=== PATIENT | female | born 2000 | race American Indian/Alaskan Native ===

== ENCOUNTER 2021-08-22 21:58 | Emergency (ER) | payer MEDICAID ==
[2021-08-23 01:28] VITALS: BP 133/79
[2021-08-23] MEDS ORDERED: IBUPROFEN 600 MG TAB PO ONE (01:46)
[2021-08-23] MEDS ORDERED: predniSONE 20 MG TAB PO ONE (01:46)
[2021-08-23] MEDS ORDERED: diazePAM 5 MG TAB PO ONE (01:47)
--- NOTE | 2021-08-23 01:51 | Emergency Department Report ---
ED Extremity Problem HPI - General Chief complaint: Extremity Injury, Upper Stated complaint: LT WRIST PAIN/POSS FRACTURE Source: patient Mode of arrival: Ambulatory Limitations: No Limitations - History of Present Illness Initial comments: Patient is a 21-year-old -[place] female with no past medical history presents to the ED with complaint of acute onset persistent nontraumatic left wrist pain for the last 2 days. Patient states that the pain is especially worse with any active range of motion. Patient states that the pain is constant and persistent and that she is unable to bear weight on the left hand because of worsening left wrist pain. Patient denies fall, traumatic injury, heavy lifting, of nausea and vomiting, fever, chills, numbness and tingling or weakness of left hand or left wrist. MD Complaint: extremity pain (Left wrist pain), joint paint (Left wrist pain) -: Sudden, days(s) (2) Location: left (Left wrist pain), upper extremity (Left wrist pain) History of Same: No -: No myalgia, Yes arthralgia (Left wrist pain), No fever, No associated dyspnea, No associated chest pain Severity scale (0 -10): 9 Quality: aching, sharp Consistency: constant Improves with: nothing Worsens with: weight bearing, exertion, palpation Associated Symptoms: denies other symptoms, arthralgias (Left wrist pain). denies: chest pain, shortness of breath, fever, myalgias, rash, other - Related Data Previous Rx's Medication Instructions Recorded Last Taken Type Naproxen 500 mg PO Q12H PRN #30 tab 08/23/21 Unknown Rx predniSONE [Deltasone] 60 mg PO QDAY #15 tab 08/23/21 Unknown Rx Allergies Allergy/AdvReac Type Severity Reaction Status Date / Time No Known Allergies Allergy Unverified 08/23/21 01:28 ED Review of Systems ROS: Stated complaint: LT WRIST PAIN/POSS FRACTURE Other details as noted in HPI Constitutional: denies: chills, fever Eyes: denies: eye pain, eye discharge, vision change ENT: denies: ear pain, throat pain Respiratory: denies: cough, shortness of breath, wheezing Cardiovascular: denies: chest pain, palpitations Endocrine: no symptoms reported Gastrointestinal: denies: abdominal pain, nausea, vomiting, diarrhea Genitourinary: denies: urgency, dysuria, discharge Musculoskeletal: arthralgia (Left wrist pain). denies: back pain, joint swelling Skin: denies: rash, lesions Neurological: denies: headache, weakness, paresthesias Psychiatric: denies: anxiety, depression Hematological/Lymphatic: denies: easy bleeding, easy bruising ED Past Medical Hx - Past Medical History Previous Medical History?: No - Surgical History Past Surgical History?: No - Medications Home Medications: Home Medications Medication Instructions Recorded Confirmed Last Taken Type Naproxen 500 mg PO Q12H PRN #30 tab 08/23/21 Unknown Rx predniSONE [Deltasone] 60 mg PO QDAY #15 tab 08/23/21 Unknown Rx ED Physical Exam - General Limitations: No Limitations General appearance: alert, in no apparent distress - Head Head exam: Present: atraumatic, normocephalic, normal inspection - Eye Eye exam: Present: normal appearance, PERRL, EOMI Pupils: Present: normal accommodation - ENT ENT exam: Present: normal exam, normal orophraynx, mucous membranes moist, TM's normal bilaterally, normal external ear exam - Neck Neck exam: Present: normal inspection, full ROM. Absent: tenderness - Respiratory Respiratory exam: Present: normal lung sounds bilaterally. Absent: respiratory distress, wheezes, rales, rhonchi, chest wall tenderness, accessory muscle use, decreased breath sounds, prolonged expiratory - Cardiovascular Cardiovascular Exam: Present: regular rate, normal rhythm, normal heart sounds. Absent: systolic murmur, diastolic murmur, rubs, gallop - GI/Abdominal GI/Abdominal exam: Present: soft, normal bowel sounds. Absent: tenderness, guarding, rebound, hyperactive bowel sounds, hypoactive bowel sounds, organomegaly - Extremities Exam Extremities exam: Present: normal inspection, tenderness (Palpable left wrist joint tenderness with limited range of motion due to pain), normal capillary refill. Absent: full ROM (Limited range of motion of left wrist due to pain), pedal edema, joint swelling, calf tenderness - Back Exam Back exam: Present: normal inspection, full ROM. Absent: tenderness, CVA tenderness (R), CVA tenderness (L), muscle spasm, paraspinal tenderness - Neurological Exam Neurological exam: Present: alert, oriented X3, CN II-XII intact, normal gait, reflexes normal - Psychiatric Psychiatric exam: Present: normal affect, normal mood - Skin Skin exam: Present: warm, dry, intact, normal color. Absent: rash ED Course Vital Signs 08/23/21 01:24 Temperature 98.6 F Pulse Rate 82 Respiratory 14 Rate Blood Pressure 133/79 [Right] O2 Sat by Pulse 100 Oximetry ED Medical Decision Making - Medical Decision Making This is a 21-year-old -[place] female with no past medical history presents to the ED with complaint of acute onset persistent nontraumatic left wrist pain for the last 2 days. Patient states that the pain is especially worse with any active range of motion. Patient states that the pain is constant and persistent and that she is unable to bear weight on the left hand because of worsening left wrist pain. In the ED, patient is alert and oriented x3 and is not in any distress. Patient was treated for pain in the ED. Based on the history and physical exam findings, patient symptoms are likely musculoskeletal, likely tendinitis or muscle strain of left wrist. Patient left wrist was splinted with Velcro splint. Patient was discharged home on pain medications and advised to follow-up with her primary care physician in 7 to 10 days for reevaluation or return to the ED immediately if symptoms get worse. - Differential Diagnosis Tendinitis; muscle strain; musculoskeletal pain; Critical care attestation.: If time is entered above; I have spent that time in minutes in the direct care of this critically ill patient, excluding procedure time. ED Disposition Clinical Impression: Left wrist tendonitis, Musculoskeletal pain of left upper extremity Muscle strain of left wrist Qualifiers: Encounter type: initial encounter Qualified Code(s): S66.912A - Strain of unspecified muscle, fascia and tendon at wrist and hand level, left hand, initial encounter Disposition: HOME / SELF CARE / HOMELESS Is pt being admited?: No Does the pt Need Aspirin: No Condition: Stable Instructions: Wrist Pain, Adult, [id number], Tendinitis, [id number], Muscle Strain, [id number] Additional Instructions: Your symptoms are likely due to muscle strain versus tendinitis or musculoskeletal pain. Therefore take medications with food, drink plenty of fluids and follow-up with your primary care physician in 7 to 10 days for reevaluation or return to the ED immediately if symptoms get worse. Prescriptions: predniSONE [Deltasone] 60 mg PO QDAY #15 tab Naproxen 500 mg PO Q12H PRN #30 tab PRN Reason: Pain , Severe (7-10) Referrals: [facility] [Provider Group] - 7-10 days Forms: Work/School Release Form(ED) Time of Disposition: 01:51 Print Language: PORTUGUESE
== END 2021-08-23 05:08 | disposition home or self-care (01) ==
LOC: ED 21:58
DX: S66.912A Strain of unspecified muscle, fascia and tendon at wrist and hand level, left hand, initial encounter (principal); M77.22 Periarthritis, left wrist; M79.18 Myalgia, other site; W19.XXXA Unspecified fall, initial encounter; Y93.89 Activity, other specified; Y92.89 Other specified places as the place of occurrence of the external cause; Y99.8 Other external cause status
CPT/HCPCS: 99282; 99283

== ENCOUNTER 2021-09-20 19:20 | Emergency (ER) | payer MEDICAID ==
[2021-09-21] MEDS ORDERED: HYDROcodone/ACETAMINOPHEN 5-325 MG TAB PO STA (02:31)
[2021-09-21 03:23] LABS: Basophils % (Auto) 0.4 % (0.0-1.8); Eosinophils # (Auto) 0.1 K/mm3 (0.0-0.4); Eosinophils % (Auto) 0.9 % (0.0-4.3); Hematocrit 35.5 % (30.3-42.9); Hemoglobin 11.5 gm/dl (10.1-14.3); Lymphocytes # (Auto) 1.1 K/mm3 (1.2-5.4); Lymphocytes % (Auto) 12.5 % (13.4-35.0); Mean Corpuscular HGB Conc 32 % (30-34); Mean Corpuscular Volume 81 fl (79-97); Monocytes # (Auto) 0.7 K/mm3 (0.0-0.8); Monocytes % (Auto) 8.4 % (0.0-7.3); Platelet Count 341 K/mm3 (140-440); Red Blood Count 4.39 M/mm3 (3.65-5.03); Red Cell Distribution Width 15.3 % (13.2-15.2)
[2021-09-21 03:46] LABS: Alanine Aminotransferase 6 units/L (7-56); Albumin 4.8 g/dL (3.9-5); Blood Urea Nitrogen 8 mg/dL (7-17); Calcium 9.5 mg/dL (8.4-10.2); Hemolysis Index 0
[2021-09-21 04:22] LABS: BUN/Creatinine Ratio 13; Bilirubin,Direct < 0.2 mg/dL (0-0.2)
[2021-09-21 05:21] LABS: HCG Qualitative,Urine Negative (Negative)
[2021-09-21 05:25] LABS: Bacteria,Urine 2+ /HPF (Negative); Bilirubin,Urine NEG (Negative); Blood,Urine LG (Negative); Color,Urine Yellow (Yellow); Mucus,Urine FEW /HPF; Urobilinogen,Urine < 2.0 mg/dL (<2.0)
[2021-09-21] MEDS ORDERED: NITROFURANTOIN MONOHYD/M-CRYST 100 MG CAP PO ONE (07:18)
[2021-09-21] MEDS ORDERED: KETOROLAC 60 MG/2 ML INJ IM ONE (07:18)
--- NOTE | 2021-09-21 07:23 | Emergency Department Report ---
ED Back Pain/Injury HPI - General Chief Complaint: Back Pain/Injury Stated Complaint: BACK PAIN Time Seen by Provider: 09/21/21 02:29 Source: patient Limitations: No Limitations - History of Present Illness Initial Comments: 21-year-old female presents to the hospital complaining of back pain for last 4 days and radiates to the abdomen. Patient states pain is moderate to severe in intensity that feels like she got punched. Pain is worse with movement and palpation. No alleviating factors reported. Patient did have 1 episode of vomiting at pain onset but no nausea vomiting since. No fever or dysuria reported. Patient received Jacobson prior to my evaluation with mild improvement. No vaginal discharge - Related Data Previous Rx's Medication Instructions Recorded Last Taken Type Naproxen 500 mg PO Q12H PRN #30 tab 08/23/21 Unknown Rx predniSONE [Deltasone] 60 mg PO QDAY #15 tab 08/23/21 Unknown Rx Fluconazole [Diflucan TAB] 150 mg PO QDAY #1 tablet 09/21/21 Unknown Rx Ibuprofen [Motrin] 600 mg PO Q8H PRN #20 tablet 09/21/21 Unknown Rx Nitrofurantoin [place]/M-Cryst 100 mg PO Q12HR #14 capsule 09/21/21 Unknown Rx [Macrobid CAP] Ondansetron [Zofran Odt] 4 mg PO Q8HR PRN #14 tab.rapdis 09/21/21 Unknown Rx traMADoL [Ultram 50 MG tab] 50 mg PO Q6HR PRN #20 tablet 09/21/21 Unknown Rx Allergies Allergy/AdvReac Type Severity Reaction Status Date / Time No Known Allergies Allergy Unverified 08/23/21 01:28 ED Review of Systems ROS: Stated complaint: BACK PAIN Other details as noted in HPI Comment: All other systems reviewed and negative ED Past Medical Hx - Medications Home Medications: Home Medications Medication Instructions Recorded Confirmed Last Taken Type Naproxen 500 mg PO Q12H PRN #30 tab 08/23/21 Unknown Rx predniSONE [Deltasone] 60 mg PO QDAY #15 tab 08/23/21 Unknown Rx Fluconazole [Diflucan TAB] 150 mg PO QDAY #1 tablet 09/21/21 Unknown Rx Ibuprofen [Motrin] 600 mg PO Q8H PRN #20 tablet 09/21/21 Unknown Rx Nitrofurantoin [place]/M-Cryst 100 mg PO Q12HR #14 capsule 09/21/21 Unknown Rx [Macrobid CAP] Ondansetron [Zofran Odt] 4 mg PO Q8HR PRN #14 tab.rapdis 09/21/21 Unknown Rx traMADoL [Ultram 50 MG tab] 50 mg PO Q6HR PRN #20 tablet 09/21/21 Unknown Rx ED Physical Exam - General Limitations: No Limitations - Other Other exam information: General: No acute distress Head: Atraumatic Eyes: normal appearance ENT: Moist mucous membranes Neck: Normal appearance, no midline tenderness Chest: Clear to auscultation bilaterally CV: Regular rate and rhythm Abdomen: Soft, normal bowel sounds, generalized abdominal tenderness, nondistended, no rebound or guarding Back: Normal inspection. Bilateral flank tenderness to palpation Extremity: Normal inspection, full range of motion Neuro: Alert O x 3, no facial asymmetry, speech clear, no gross motor sensory deficit Psych: Appropriate behavior Skin: No rash ED Course Vital Signs 09/20/21 09/21/21 20:09 03:52 Temperature 98.3 F Pulse Rate 94 H Respiratory 18 16 Rate Blood Pressure 144/82 O2 Sat by Pulse 100 Oximetry ED Medical Decision Making - Lab Data Result diagrams: 09/21/21 02:45 09/21/21 02:45 Lab Results 09/21/21 09/21/21 09/21/21 Range/Units 02:45 02:45 05:14 WBC 8.6 (4.5-11.0) K/mm3 RBC 4.39 (3.65-5.03) M/mm3 Hgb 11.5 (10.1-14.3) gm/dl Hct 35.5 (30.3-42.9) % MCV 81 (79-97) fl MCH 26 L (28-32) pg MCHC 32 (30-34) % RDW 15.3 H (13.2-15.2) % Plt Count 341 (140-440) K/mm3 Lymph % (Auto) 12.5 L (13.4-35.0) % Crockett % (Auto) 8.4 H (0.0-7.3) % Eos % (Auto) 0.9 (0.0-4.3) % Baso % (Auto) 0.4 (0.0-1.8) % Lymph # (Auto) 1.1 L (1.2-5.4) K/mm3 [place]ett # (Auto) 0.7 (0.0-0.8) K/mm3 Eos # (Auto) 0.1 (0.0-0.4) K/mm3 Baso # (Auto) 0.0 (0.0-0.1) K/mm3 Seg Neutrophils % 77.8 H (40.0-70.0) % Seg Neutrophils # 6.7 (1.8-7.7) K/mm3 Sodium 139 (137-145) mmol/L Potassium 4.0 (3.6-5.0) mmol/L Chloride 101.9 (98-107) mmol/L Carbon Dioxide 25 (22-30) mmol/L Anion Gap 16 mmol/L BUN 8 (7-17) mg/dL Creatinine 0.6 (0.6-1.2) mg/dL Estimated GFR > 60 ml/min BUN/Creatinine Ratio 13 % Glucose 108 H (65-100) mg/dL Calcium 9.5 (8.4-10.2) mg/dL Total Bilirubin 0.20 (0.1-1.2) mg/dL Direct Bilirubin < 0.2 (0-0.2) mg/dL Indirect Bilirubin 0.0 mg/dL AST 13 (5-40) units/L ALT 6 L (7-56) units/L Alkaline Phosphatase 61 (35-129) units/L Total Protein 7.7 (6.3-8.2) g/dL Albumin 4.8 (3.9-5) g/dL Albumin/Globulin Ratio 1.7 % Urine Color Yellow (Yellow) Urine Turbidity Slightly-cloudy (Clear) Urine pH 7.0 (5.0-7.0) Ur Specific Sharon 1.003 (1.003-1.030) Urine Protein 100 mg/dl (Negative) mg/dL Urine Glucose (UA) Neg (Negative) mg/dL Urine Ketones Neg (Negative) mg/dL Urine Blood Lg (Negative) Urine Nitrite Neg (Negative) Ur Reducing Substances Not Reportable Urine Bilirubin Neg (Negative) Urine Ictotest Not Reportable Urine Urobilinogen < 2.0 (<2.0) mg/dL Ur Leukocyte Esterase Lg (Negative) Urine WBC (Auto) 16.0 H (0.0-6.0) /HPF Urine RBC (Auto) 7.0 (0.0-6.0) /HPF U Epithel Cells (Auto) 15.0 H (0-13.0) /HPF Urine Bacteria (Auto) 2+ (Negative) /HPF Urine Mucus Few /HPF Urine Yeast (Budding) 1+ /HPF Urine HCG, Qual Negative (Negative) - Medical Decision Making 21-year-old female with back pain and abdominal pain with UA findings suggestive of UTI versus contamination. Patient be treated symptomatic for pain, nausea, and provided medication for UTI and yeast. Outpatient follow-up recommended. Patient treated with Jacobson, Toradol, and Macrobid in the ED Critical Care Time: No Critical care attestation.: If time is entered above; I have spent that time in minutes in the direct care of this critically ill patient, excluding procedure time. ED Disposition Clinical Impression: UTI (urinary tract infection), Abdominal pain, Back pain, Yeast vaginitis Disposition: HOME / SELF CARE / HOMELESS Is pt being admited?: No Condition: Stable Instructions: Urinary Tract Infection, Adult, [id number], Abdominal Pain, Adult, Vaginal Yeast Infection, Adult Additional Instructions: Take the medication as prescribed. Follow-up with your doctor or doctor/clinic provided. Return if symptoms worsen as indicated by your discharge instructions. Prescriptions: Fluconazole [Diflucan TAB] 150 mg PO QDAY #1 tablet Nitrofurantoin [place]/M-Cryst [Macrobid CAP] 100 mg PO Q12HR #14 capsule Ibuprofen [Motrin] 600 mg PO Q8H PRN #20 tablet PRN Reason: Pain traMADoL [Ultram 50 MG tab] 50 mg PO Q6HR PRN #20 tablet PRN Reason: Pain Ondansetron [Zofran Odt] 4 mg PO Q8HR PRN #14 tab.rapdis PRN Reason: Nausea And Vomiting Referrals: PRIMARY CARE, [Primary Care Provider] - 3-[address] [facility] [Provider Group] - 3-5 Days Time of Disposition: 07:25
[2021-09-21 07:40] VITALS: BP 128/64
== END 2021-09-21 07:38 | disposition home or self-care (01) ==
LOC: ED 19:20
DX: N39.0 Urinary tract infection, site not specified (principal); M54.50 Low back pain, unspecified; R10.9 Unspecified abdominal pain; B37.3 Candidiasis of vulva and vagina
CPT/HCPCS: 36415; 80048; 80076; 81001; 81025; 85025; 87086; 96372; 99283; J1885

== ENCOUNTER 2021-10-19 02:35 | Emergency (ER) | payer MEDICAID ==
[2021-10-19 04:08] LABS: HCG Qualitative,Urine Negative (Negative)
[2021-10-19 04:13] LABS: Bacteria,Urine 1+ /HPF (Negative); Bilirubin,Urine NEG (Negative); Blood,Urine SM (Negative); Color,Urine Yellow (Yellow); Mucus,Urine 3+ /HPF; Urobilinogen,Urine < 2.0 mg/dL (<2.0)
[2021-10-19 05:38] LABS: Hematocrit 34.1 % (30.3-42.9); Hemoglobin 10.7 gm/dl (10.1-14.3); Mean Corpuscular HGB Conc 32 % (30-34); Mean Corpuscular Volume 82 fl (79-97); Platelet Count 234 K/mm3 (140-440); Red Blood Count 4.18 M/mm3 (3.65-5.03); Red Cell Distribution Width 15.6 % (13.2-15.2)
[2021-10-19 05:51] LABS: Blood Urea Nitrogen 8 mg/dL (7-17); Calcium 9.3 mg/dL (8.4-10.2); Hemolysis Index 7
[2021-10-19 06:07] LABS: BUN/Creatinine Ratio 16
--- NOTE | 2021-10-19 08:22 | Emergency Department Report ---
ED Abdominal Pain HPI - General Chief Complaint: Abdominal Pain Stated Complaint: RT FLANK PAIN PUI?: No Time Seen by Provider: 10/19/21 06:46 Source: EMS Mode of arrival: Stretcher Limitations: No Limitations - History of Present Illness Initial Comments: Patient is a 21-year-old female presenting to ED with complaint of right flank pain that is been worsening over the past few weeks. She denies any fever or chills. She reports associated nausea without vomiting. There are no modifying factors. - Related Data Previous Rx's Medication Instructions Recorded Last Taken Type Naproxen 500 mg PO Q12H PRN #30 tab 08/23/21 Unknown Rx predniSONE [Deltasone] 60 mg PO QDAY #15 tab 08/23/21 Unknown Rx Fluconazole [Diflucan TAB] 150 mg PO QDAY #1 tablet 09/21/21 Unknown Rx Ibuprofen [Motrin] 600 mg PO Q8H PRN #20 tablet 09/21/21 Unknown Rx Nitrofurantoin [place]/M-Cryst 100 mg PO Q12HR #14 capsule 09/21/21 Unknown Rx [Macrobid CAP] Ondansetron [Zofran Odt] 4 mg PO Q8HR PRN #14 tab.rapdis 09/21/21 Unknown Rx traMADoL [Ultram 50 MG tab] 50 mg PO Q6HR PRN #20 tablet 09/21/21 Unknown Rx Ciprofloxacin/Ciprofloxa HCl 500 mg PO BID #28 10/19/21 Unknown Rx [Ciprofloxacin ER 500 mg Tablet] traMADoL [Ultram 50 MG tab] 50 mg PO Q6HR PRN #14 tablet 10/19/21 Unknown Rx Allergies Allergy/AdvReac Type Severity Reaction Status Date / Time aspirin Allergy Itching Verified 10/19/21 03:32 ED Review of Systems ROS: Stated complaint: RT FLANK PAIN Other details as noted in HPI Comment: All other systems reviewed and negative Constitutional: denies: chills, fever Respiratory: denies: cough, shortness of breath, wheezing Cardiovascular: denies: chest pain, palpitations Endocrine: no symptoms reported Gastrointestinal: nausea. denies: vomiting Genitourinary: other (Flank pain) Skin: denies: rash, lesions Neurological: denies: headache, weakness, paresthesias Psychiatric: denies: anxiety, depression ED Past Medical Hx - Past Medical History Previous Medical History?: No - Surgical History Past Surgical History?: No - Social History Smoking Status: Never Smoker Substance Use Type: None - Medications Home Medications: Home Medications Medication Instructions Recorded Confirmed Last Taken Type Naproxen 500 mg PO Q12H PRN #30 tab 08/23/21 Unknown Rx predniSONE [Deltasone] 60 mg PO QDAY #15 tab 08/23/21 Unknown Rx Fluconazole [Diflucan TAB] 150 mg PO QDAY #1 tablet 09/21/21 Unknown Rx Ibuprofen [Motrin] 600 mg PO Q8H PRN #20 tablet 09/21/21 Unknown Rx Nitrofurantoin [place]/M-Cryst 100 mg PO Q12HR #14 capsule 09/21/21 Unknown Rx [Macrobid CAP] Ondansetron [Zofran Odt] 4 mg PO Q8HR PRN #14 tab.rapdis 09/21/21 Unknown Rx traMADoL [Ultram 50 MG tab] 50 mg PO Q6HR PRN #20 tablet 09/21/21 Unknown Rx Ciprofloxacin/Ciprofloxa HCl 500 mg PO BID #28 10/19/21 Unknown Rx [Ciprofloxacin ER 500 mg Tablet] traMADoL [Ultram 50 MG tab] 50 mg PO Q6HR PRN #14 tablet 10/19/21 Unknown Rx ED Physical Exam - General Limitations: No Limitations General appearance: alert, in no apparent distress - Head Head exam: Present: atraumatic, normocephalic - Neck Neck exam: Present: normal inspection - Respiratory Respiratory exam: Present: normal lung sounds bilaterally - Cardiovascular Cardiovascular Exam: Present: regular rate, normal rhythm, normal heart sounds - GI/Abdominal GI/Abdominal exam: Present: soft. Absent: distended, tenderness - Rectal Rectal exam: Present: deferred - Back Exam Back exam: Present: CVA tenderness (R) - Neurological Exam Neurological exam: Present: alert, oriented X3, CN II-XII intact - Psychiatric Psychiatric exam: Present: normal affect, normal mood ED Course Vital Signs 10/19/21 10/19/21 10/19/21 02:56 03:22 03:30 Temperature 98.7 F Pulse Rate 99 H 102 H Respiratory 18 22 Rate Blood Pressure 125/72 117/65 O2 Sat by Pulse 99 97 98 Oximetry 10/19/21 10/19/21 10/19/21 04:00 04:30 05:00 Temperature Pulse Rate 104 H 97 H 99 H Respiratory 23 23 20 Rate Blood Pressure 130/74 108/85 119/62 O2 Sat by Pulse 98 97 98 Oximetry 10/19/21 06:00 Temperature Pulse Rate 97 H Respiratory 20 Rate Blood Pressure 113/66 O2 Sat by Pulse 98 Oximetry ED Medical Decision Making - Lab Data Result diagrams: 10/19/21 05:17 10/19/21 05:17 - Medical Decision Making Patient presenting with complaint of worsening right flank pain for the past few weeks. CBC and CMP grossly unremarkable. Urinalysis reveals 141 WBCs. Suspect likely pyelonephritis. Vital signs are stable. Patient is afebrile. Will discharge home on Cipro 500 twice daily x14 days along with tramadol for pain. Patient instructed to follow-up with PCP in 1 week. Critical care attestation.: If time is entered above; I have spent that time in minutes in the direct care of this critically ill patient, excluding procedure time. ED Disposition Clinical Impression: Pyelonephritis Disposition: 01 HOME / SELF CARE / HOMELESS Is pt being admited?: No Condition: Stable Instructions: Abdominal Pain (ED), Pyelonephritis, Adult, [id number] Additional Instructions: Please follow-up with your regular doctor in 1 week for reassessment. You may return to ER if your symptoms worsen. Time of Disposition: 08:22
[2021-10-19 11:20] VITALS: BP 123/72
== END 2021-10-19 11:19 | disposition home or self-care (01) ==
LOC: ED 02:35
DX: N12 Tubulo-interstitial nephritis, not specified as acute or chronic (principal); Z88.6 Allergy status to analgesic agent
CPT/HCPCS: 36415; 80048; 81001; 81025; 85027; 99283